=== PATIENT | male | born 1975 | race Caucasian/White ===

== ENCOUNTER 2017-09-29 13:40 | Emergency (ER) | payer OTHER ==
[~2017-09-29] VITALS: Ht 182.9 cm; Wt 101.0 kg
[~2017-09-29 13:40] MED LIST: PRILOSEC40 MG PO; ULTRAM50 MG PO
[2017-09-29 20:56] VITALS: BP 117/84
== END 2017-09-29 20:58 | disposition short-term general hospital (02) ==
LOC: EME 13:40 → OPR 16:30 → EME 16:30
DX: T18.128A Food in esophagus causing other injury, initial encounter (principal); Z88.6 Allergy status to analgesic agent
CPT/HCPCS: 74022; 88305; 99281; 99285; J0330; J2060; J2405; J3010; J7030